=== PATIENT | female | born 1980 | race Caucasian/White ===

== ENCOUNTER 2018-06-01 18:02 | Emergency (ER) | payer OTHER ==
[2018-06-01] MEDS ORDERED: HYDROmorphone 0.5 MG/0.5 ML Syringe IVPUSH ONE (18:43)
[2018-06-01] MEDS ORDERED: Ondansetron 4 MG/2 ML SDV IVPUSH ONE (18:43)
[2018-06-01] MEDS ORDERED: Sodium Chloride 0.9% 1,000 ML IV SCH (18:45)
--- NOTE | 2018-06-01 18:48 | EDM.PDOC ---
ED HPI GENERAL MEDICAL PROBLEM - General Chief Complaint: Gastrointestinal Problem Stated Complaint: NAUSEOUS, FEVER Time Seen by Provider: 06/01/18 18:30 Source of Information: Reports: Patient History Limitations: Reports: No Limitations - History of Present Illness INITIAL COMMENTS - FREE TEXT/NARRATIVE: 37-year-old female who has had waxing and waning abdominal pain for the past week, has now developed nausea and vomiting over the past 24 hours. A small amount of radiation of pain to the back. Fevers and chills are also waxing and waning. Some diarrhea. She has not seen blood in the emesis or diarrhea. History of a hysterectomy is her only surgery. Her main concern is the abdominal cramping and pain along with the vomiting. No cough or shortness of breath, no respiratory symptoms. 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 Onset: Gradual Duration: Day(s): (7 days of pain, 24 hours of vomiting) Location: Reports: Abdomen Associated Symptoms: Reports: Diaphoresis (Becomes sweaty and lightheaded when vomiting), Fever/Chills, Loss of Appetite, Malaise, Nausea/Vomiting. 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, Other (See Below) Other SAP DATA ANALYST History: cysts - Past Surgical History Female Surgical History: Reports: Hysterectomy, Oophorectomy, Salpingo- Oophorectomy Social & Family History - Tobacco Use Smoking Status *Q: Former Smoker Used Tobacco, but Quit: Yes Month/Year Tobacco Last Used: 2013 - Caffeine Use Caffeine Use: Reports: Coffee - Recreational Drug Use Recreational Drug Use: No ED ROS GENERAL - Review of Systems Review Of Systems: See Below Constitutional: Reports: Fever, Chills, Malaise, Decreased Appetite HEENT: Denies: Throat Pain Respiratory: Denies: Shortness of Breath, Cough Cardiovascular: Denies: Chest Pain GI/Abdominal: Reports: Abdominal Pain, Diarrhea, Nausea, Vomiting : Reports: No Symptoms Musculoskeletal: Reports: Other (Aches all over) Skin: Reports: No Symptoms Neurological: Reports: No Symptoms Psychiatric: Reports: No Symptoms ED EXAM, GI/ABD - Physical Exam Exam: See Below Exam Limited By: No Limitations General Appearance: Alert, No Apparent Distress, Other (Holding an emesis bag, looks uncomfortable but not distressed) Eyes: Bilateral: Normal Appearance (No jaundice, appears to have adequate hydration) Throat/Mouth: Normal Inspection Head: Atraumatic Respiratory/Chest: No Respiratory Distress, Lungs Clear Cardiovascular: Regular Rate, Rhythm. No: Tachycardia GI/Abdominal Exam: Guarding, Tender (There is tenderness to palpation across the upper abdomen, especially in the left side. Slight guarding present), Abnormal Bowel Sounds (Bowel sounds are very hypoactive) Extremities: Normal Inspection Neurological: Alert, Oriented Psychiatric: Depressed Mood Skin Exam: Warm, Dry Course - Vital Signs Last Recorded V/S: Last Vital Signs Temp 98.1 F 06/01/18 19:18 Pulse 74 06/01/18 19:18 Resp 16 06/01/18 19:18 BP 102/56 L 06/01/18 19:18 Pulse Ox 99 06/01/18 19:18 - Orders/Labs/Meds Labs: Laboratory Tests 06/01/18 06/01/18 Range/Units 18:53 18:53 WBC 10.0 (4.5-11.0) K/uL RBC 4.88 (3.30-5.50) M/uL Hgb 13.9 (12.0-15.0) g/dL Hct 42.0 (36.0-48.0) % MCV 86 (80-98) fL MCH 29 (27-31) pg MCHC 33 (32-36) % Plt Count 184 (150-400) K/uL Neut % (Auto) 95 H (36-66) % Lymph % (Auto) 3 L (24-44) % Marshall % (Auto) 2 (2-6) % Eos % (Auto) 0 L (2-4) % Baso % (Auto) 0 (0-1) % Sodium 140 (140-148) mmol/L Potassium 3.5 L (3.6-5.2) mmol/L Chloride 102 (100-108) mmol/L Carbon Dioxide 27 (21-32) mmol/L Anion Gap 14.5 H (5.0-14.0) mmol/L BUN 17 D (7-18) mg/dL Creatinine 0.8 (0.6-1.0) mg/dL Est Cr Clr Drug Dosing 91.01 mL/min Estimated GFR (MDRD) > 60 (>60) Glucose 113 H (74-106) mg/dL Calcium 8.7 (8.5-10.1) mg/dL Total Bilirubin 1.4 H D (0.2-1.0) mg/dL AST 20 (15-37) U/L ALT 21 (12-78) U/L Alkaline Phosphatase 79 (46-116) U/L Total Protein 7.6 (6.4-8.2) g/dL Albumin 4.0 (3.4-5.0) g/dL Globulin 3.6 H (2.3-3.5) g/dL Albumin/Globulin Ratio 1.1 L (1.2-2.2) Amylase 47 (25-115) U/L Lipase 140 (73-393) U/L Meds: Medications Discontinued Medications Generic Name Dose Route Start Last Admin Trade Name Freq PRN Reason Stop Dose Admin Hydromorphone HCl 0.5 mg 06/01/18 18:43 06/01/18 19:02 Dilaudid IVPUSH 06/01/18 18:44 0.5 mg ONETIME ONE Administration Sodium Chloride 1,000 mls @ 1,000 mls/hr 06/01/18 18:45 06/01/18 19:00 Normal Saline IV 1,000 mls/hr ASDIRECTED SANTANA Administration Ondansetron HCl 4 mg 06/01/18 18:43 06/01/18 19:01 Zofran IVPUSH 06/01/18 18:44 4 mg ONETIME ONE Administration - Re-Assessments/Exams Free Text/Narrative Re-Assessment/Exam: 06/01/18 18:48 An IV was started, the patient will be hydrated with 1 L of normal saline and given 4 mg of IV Zofran and 0.5 mg of IV Dilaudid. CBC, CMP, amylase and lipase obtained. 06/01/18 19:43 Patient felt better after the medications, just felt "tired". CBC showed a normal white count and hemoglobin, amylase and lipase were negative. CMP revealed a mildly elevated bilirubin, all other labs including AST and alkaline phosphatase were reassuring. After the full liter of normal saline was given, she was discharged with 5 additional doses of sublingual Zofran, and if not improved by Sunday morning an abdominal ultrasound may be worthwhile. If she improves no follow-up is needed. She can return anytime if worsening despite treatment. Departure - Departure Time of Disposition: 20:09 Disposition: Home, Self-Care 01 Condition: Fair Clinical Impression: Gastroenteritis - Discharge Information Instructions: Nausea and Vomiting, Adult, [id number] Referrals: Loni Pak MD [Primary Care Provider] - Forms: ED Department Discharge Care Plan Goals: Rest, fluids, and use sublingual Zofran as needed for nausea. Return to the emergency room at any time if worsening despite treatment or you feel you need more evaluation. Otherwise recheck Sunday if not improving satisfactorily.
[2018-06-01 19:19] VITALS: BP 102/56
== END 2018-06-01 20:10 | disposition home or self-care (01) ==
LOC: JP.ED 18:02
DX: K52.9 Noninfective gastroenteritis and colitis, unspecified (principal); Z87.891 Personal history of nicotine dependence
CPT/HCPCS: 36415; 80053; 82150; 83690; 85025; 96361; 96374; 96375; 99284; J1170; J2405; J7030

== ENCOUNTER 2020-01-06 17:11 | Emergency (ER) | payer OTHER ==
[2020-01-06 18:08] VITALS: BP 132/94; PULSE 72
[2020-01-06] MEDS ORDERED: Ketorolac 30 MG/ML SDV IVPUSH ONE (18:12)
[2020-01-06] MEDS ORDERED: methylPREDNISolone Sodium Succinate 125 MG/2 ML SDV IVPUSH ONE (18:12)
[2020-01-06] MEDS ORDERED: Metoclopramide 10 MG/2 ML SDV IVPUSH ONE (18:13)
[2020-01-06] MEDS ORDERED: Sodium Chloride 0.9% 1,000 ML IV SCH (18:15)
--- NOTE | 2020-01-06 18:57 | EDM.PDOC ---
ED HPI GENERAL MEDICAL PROBLEM - General Chief Complaint: Gastrointestinal Problem Stated Complaint: VOMITING, DISC FUSION ON 12/31/2019 Time Seen by Provider: 01/06/20 18:05 Source of Information: Reports: Patient History Limitations: Reports: No Limitations - History of Present Illness INITIAL COMMENTS - FREE TEXT/NARRATIVE: 39-year-old female that had a cervical fusion of C5-C6 1 week ago, has been struggling with persistent nausea and vomiting and unable to eat over the past week. She is had 1 day where she felt relatively good, she stopped her pain medication 2 days ago and is just been taking Tylenol. They tried full dose Zofran but it is not helping. No fevers or chills. She also has a persistent migraine and is taken "full dose" of Imitrex and it is not helping. She just feels miserable. No abdominal pain, back pain, peripheral neurologic deficits or other complaints. Duration: Day(s): (Symptoms have been persistent for 6 days since surgery) Improves with: Reports: None (Nothing seems to be helping including Zofran) Worsens with: Reports: Eating (Eating causes increased nausea) Associated Symptoms: Reports: Nausea/Vomiting, Other (Persistent migraine-like headache) - Related Data Allergies Allergy/AdvReac Type Severity Reaction Status Date / Time No Known Allergies Allergy Verified 01/06/20 17:44 Home Meds: Home Meds estradioL [Estradiol] 1 patch TOP ASDIRECTED 06/01/18 [History] Acetaminophen [Tylenol Extra Strength] 500 mg PO Q8HR 01/06/20 [History] SUMAtriptan [Imitrex] 50 mg PO ASDIRECTED 01/06/20 [History] ondansetron HCL [Zofran] 8 mg PO Q8H PRN 01/06/20 [History] Past Medical History - Past Health History Medical/Surgical History: Denies 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 Social & Family History - Tobacco Use Smoking Status *Q: Never Smoker - Caffeine Use Caffeine Use: Reports: Coffee - Recreational Drug Use Recreational Drug Use: No ED ROS GENERAL - Review of Systems Review Of Systems: See Below Constitutional: Reports: Malaise. Denies: Fever, Chills HEENT: Denies: Vision Change Respiratory: Denies: Shortness of Breath Cardiovascular: Denies: Chest Pain GI/Abdominal: Reports: Nausea, Vomiting. Denies: Abdominal Pain, Constipation, Diarrhea Musculoskeletal: Reports: Neck Pain (Postsurgical, actually tolerating the surgery fairly well) Skin: Reports: No Symptoms Neurological: Reports: Headache ED EXAM, GENERAL - Physical Exam Exam: See Below Exam Limited By: No Limitations General Appearance: Alert, Mild Distress (Patient is tearful, looks uncomfortable but very stable.) Eye Exam: Bilateral Eye: Other (Eyes are well hydrated, crying profuse tears) Neck: Other (Rigid collar is in place which was not removed) Respiratory/Chest: No Respiratory Distress Cardiovascular: Regular Rate, Rhythm. No: Tachycardia Neurological: Alert, Oriented, No Motor/Sensory Deficits (No weakness of the arms or legs) Psychiatric: Flat Affect Skin Exam: Warm, Dry Course - Vital Signs Last Recorded V/S: Last Vital Signs Temp 97.4 F 01/06/20 17:46 Pulse 72 01/06/20 18:08 Resp 16 01/06/20 17:46 BP 132/94 H 01/06/20 18:08 Pulse Ox 96 01/06/20 18:08 - Orders/Labs/Meds Meds: Medications Discontinued Medications Generic Name Dose Route Start Last Admin Trade Name Freq PRN Reason Stop Dose Admin Sodium Chloride 1,000 mls @ 1,000 mls/hr 01/06/20 18:15 01/06/20 18:40 Normal Saline IV 1,000 mls/hr ASDIRECTED SANTANA Administration Ketorolac Tromethamine 30 mg 01/06/20 18:12 01/06/20 18:40 Toradol IVPUSH 01/06/20 18:13 30 mg ONETIME ONE Administration Methylprednisolone Sodium Succinate 62.5 mg 01/06/20 18:12 01/06/20 18:40 Solu-Medrol IVPUSH 01/06/20 18:13 62.5 mg ONETIME ONE Administration Metoclopramide HCl 5 mg 01/06/20 18:13 01/06/20 18:39 Reglan IVPUSH 01/06/20 18:14 5 mg ONETIME ONE Administration Metoclopramide HCl 10 mg 01/06/20 19:33 01/06/20 19:57 Reglan PO 01/06/20 19:34 10 mg ONETIME ONE Administration - Re-Assessments/Exams Free Text/Narrative Re-Assessment/Exam: 01/06/20 18:57 An IV was started, after consultation with neurosurgery she was given 30 mg of IV Toradol, 62.5 mg of IV Solu-Medrol and 5 mg of IV Reglan. 01/06/20 19:32 Patient received fairly good symptom relief from the IV medications. She will be discharged with 1 more oral dose of Reglan, and a prescription for 20 more doses to use every 6 hours for nausea and vomiting. Departure - Departure Time of Disposition: 19:43 Disposition: Home, Self-Care 01 Clinical Impression: Postoperative nausea and vomiting Headache, migraine Qualifiers: Migraine type: unspecified Status migrainosus presence: without status migrainosus Intractability: not intractable Qualified Code(s): G43.909 - Migraine, unspecified, not intractable, without status migrainosus - Discharge Information Instructions: Nausea and Vomiting, Adult, [id number] Referrals: Aneta Salmon MD [Primary Care Provider] - Forms: ED Department Discharge Care Plan Goals: Take Reglan every 6 hours to try to control nausea and vomiting, and it is okay to take ibuprofen along with Tylenol help with headache pain and neck pain. Return in 2 to 3 days if not improving satisfactorily, or sooner if worsening despite treatment. Advance diet slowly, concentrating on fluids. Sepsis Event Note (ED) - Evaluation Sepsis Screening Result: No Definite Risk - Focused Exam Vital Signs: Vital Signs Temp Pulse Resp BP Pulse Ox 01/06/20 18:08 72 132/94 H 96 01/06/20 17:46 97.4 F 66 16 133/90 97 01/06/20 17:35 97.4 F 66 16 133/90 97
[2020-01-06] MEDS ORDERED: Metoclopramide 10 MG Tab PO ONE (19:33)
== END 2020-01-06 19:58 | disposition home or self-care (01) ==
LOC: JP.ED 17:11
DX: G43.909 Migraine, unspecified, not intractable, without status migrainosus (principal)
CPT/HCPCS: 96361; 96374; 96375; 99283; A9270; J1885; J2765; J2930; J7030

== ENCOUNTER 2024-04-28 20:30 | Emergency (ER) | payer OTHER ==
[2024-04-28 20:59] VITALS: BP 108/65; PULSE 66
[2024-04-28 21:22] LABS: BASOPHILS PERCENT AUTO 0.1 % (0.1-1.3); EOSINOPHILS PERCENT AUTO 0.1 % (0.0-5.4); HEMATOCRIT 39.6 % (34.3-46.0); HEMOGLOBIN 13.8 g/dL (11.2-15.5); IMMATURE GRAN PERCENT AUTO 0.2 % (0.0-0.7); LYMPHOCYTES ABSOLUTE AUTO 0.53 K/uL (0.8-3.3); LYMPHOCYTES PERCENT AUTO 6.3 % (11.4-47.7); MEAN CORPUSCULAR HEMOGLOBIN 29.9 pg (31.6-35.5); MEAN CORPUSCULAR HGB CONC 34.8 g/dL (31.6-35.5); MEAN CORPUSCULAR VOLUME 85.7 fL (81.4-99.0); MONOCYTES ABSOLUTE AUTO 0.06 K/uL (0.20-0.90); MONOCYTES PERCENT AUTO 0.7 % (3.3-12.6); NEUTROPHILS ABSOLUTE AUTO 7.74 K/uL (1.0-7.6); NEUTROPHILS PERCENT AUTO 92.6 % (40.0-78.1); PLATELET COUNT,PLT 241 K/uL (130-375); RED BLOOD CELL COUNT 4.62 M/uL (3.77-5.24); WHITE BLOOD CELL COUNT,WBC 8.4 K/uL (3.2-11.0)
[2024-04-28 21:22] LABS: CREATININE 0.8 mg/dL (0.5-1.0); EST CRCL DRUG DOSING (CG) 87.42 mL/min
[2024-04-28] MEDS: Ketorolac 15 MG/ML SDV IVPUSH ONE (21:22)
[2024-04-28] MEDS: Ondansetron 4 MG/2 ML SDV IVPUSH ONE (21:22)
[2024-04-28] MEDS: Sodium Chloride 0.9% 1,000 ML IV ONE (21:23)
[2024-04-28 21:28] LABS: BASOPHILS ABSOLUTE AUTO 0.01 K/uL (0.00-0.10); EOSINOPHILS ABSOLUTE AUTO 0.01 K/uL (0.00-0.40); IMMATURE GRAN ABSOLUTE AUTO 0.02 K/uL (0.00-0.23)
== END 2024-04-28 23:22 | disposition home or self-care (01) ==
LOC: JP.ED 20:30
DX: T81.89XA Other complications of procedures, not elsewhere classified, initial encounter (principal); R11.2 Nausea with vomiting, unspecified; Z90.710 Acquired absence of both cervix and uterus
CPT/HCPCS: 36415; 82565; 84132; 84295; 84703; 85025; 96361; 96374; 96375; 99284; 99284-25; J1885; J2405; J7030